=== PATIENT | female | born 1950 | race Caucasian/White ===

== ENCOUNTER 2020-10-05 09:32 | Emergency (ER) | payer OTHER, BC ==
[2020-10-05] MEDS ORDERED: IBUPROFEN 400 MG TAB ONE (10:08)
--- NOTE | 2020-10-05 10:17 | RAD REPORT ---
EXAM DESCRIPTION: CT - Head Brain Wo Cont - 10/05/2020 10:02 am CLINICAL HISTORY: Numbness/Lazo's palsy COMPARISON: None TECHNIQUE: Computed axial tomography of the head was obtained. IV contrast was not requested. All CT scans are performed using dose optimization technique as appropriate and may include automated exposure control or mA/KV adjustment according to patient size. FINDINGS: An intracranial bleed is not seen . The ventricles are normal in caliber. No extra-axial fluid collection is noted. Fluid within the sinuses/ mastoids is not seen. IMPRESSION: No acute intracranial abnormality is seen. If patient's symptoms persist MRI of the bra in would be recommended.
--- NOTE | 2020-10-05 10:48 | ER ---
Nurse's Notes [facility] Name: Chloe Serrano Age: 70 yrs Sex: Female : 1950 Arrival Date: 10/05/2020 Time: 09:34 Bed 14 Private MD: Diagnosis: Lazo's palsy Presentation: 10/05 09:39 Chief complaint: Patient states: left facial numbness, droop, unable to close her left sv eye since yesterday around 1600. Reports left ear pain x 1-2 days ago and took some Hydrocodone last night for it. Coronavirus screen: Client denies travel out of the [place] in the last 14 days. At this time, the client does not indicate any symptoms associated with coronavirus-19. Ebola Screen: No symptoms or risks identified at this time. No acute neurological deficit is noted. Pre-hospital glucose is not applicable to this patient. Risk Assessment: Do you want to hurt yourself or someone else? Patient reports no desire to harm self or others. Onset of symptoms was October 04, 2020. 09:39 Method Of Arrival: Wheelchair sv 09:39 Acuity: SARAH 3 sv 09:39 Initial Sepsis Screen: Does the patient meet any 2 criteria? No. Patient's initial sv sepsis screen is negative. Does the patient have a suspected source of infection? No. Patient's initial sepsis screen is negative. Triage Assessment: 09:39 The onset of the patients symptoms was more than six hours ago. The onset of the sv patients symptoms was October 04, 2020 at 16:00. General: Appears in no apparent distress. comfortable, Behavior is calm, cooperative, appropriate for age. Pain: Complains of pain in left ear. Neuro: Level of Consciousness is awake, alert, obeys commands, Oriented to person, place, time, situation, Manager Video are equal bilaterally Moves all extremities. Full function Gait is steady, Speech is normal, Facial droop on left, Reports numbness in left religion, left zygomatic area and left cheek. Respiratory: Respiratory effort is even, unlabored. Stroke Activation: Symptom onset > 6 hours Physician: Stroke Attending; Name: ; Notified At: ; Arrived At: Physician: Chief Stroke Resident; Name: ; Notified At: ; Arrived At: Physician: Stroke Resident; Name: ; Notified At: ; Arrived At: Physician: ED Attending; Name: ; Notified At: ; Arrived At: Physician: ED Resident; Name: ; Notified At: ; Arrived At: Historical: - Allergies: 09:41 No Known Allergies; sv - PMHx: :41 None; sv - PSHx: 09:41 Cholecystectomy; sv - Immunization history:: Client reports having NOT received the Covid vaccine. Flu vaccine is not up to date. - Social history:: Smoking status: Patient denies any tobacco usage or history of. Screenin:53 Abuse screen: Denies threats or abuse. Nutritional screening: No deficits noted. bw Tuberculosis screening: No symptoms or risk factors identified. Fall Risk None identified. Assessment: 09:40 Reassessment: Informed Enrique GILLILAND of the pt's reason for visit and symptoms. sv 09:53 VAN Scoring: Arm Drift: Patients demonstrates NO arm weakness. Patient is VAN Negative. bw The patient has not been NPO before screening. The patient is currently on the following diet: regular The patient is alert, and able to follow commands. The patient does not exhibit slurred or garbled speech. The patient is not exhibiting difficulty speaking. The patient does not exhibit difficulty understanding words. The patient is able to swallow own secretions with no drooling or need for suction. Patient tolerated one teaspoon of water. No drooling, immediate coughing, gurgling, or clearing of the throat was noted. The patient tolerated 90mL of water. No drooling, immediate coughing, gurgling, or clearing of the throat was noted. The patient passed the bedside swallow screening. Oral medications may be given as ordered. Contact Physician for further diet orders. Provider notified of bedside swallow screening results: Enrique GILLILAND. 10:43 Reassessment: Patient appears in no apparent distress at this time. No changes from bw previously documented assessment. Patient and/or family updated on plan of care and expected duration. Pain level reassessed. Patient is alert, oriented x 3, equal unlabored respirations, skin warm/dry/pink. 10:51 T-PA (Activase) Screening: Indications: Contraindications: Other: not a candidate nor bw indicated. Vital Signs: 09:39 BP 146 / 74; Pulse 76; Resp 16; Temp 97.3; Pulse Ox 96% ; Weight 65.77 kg; Height 5 ft. sv 8 in. (172.72 cm); 10:43 BP 141 / 70; Pulse 74; Pulse Ox 98% on R/A; bw 09:39 Body Mass Index 22.05 (65.77 kg, 172.72 cm) sv NIH Stroke Scale Scores: 09:53 NIHSS Score: 1 bw ED Course: 09:34 Patient arrived in ED. rg4 09:38 Enrique Howe PA is PHCP. cp 09:38 Oc Cabrera MD is Attending Physician. cp 09:41 Triage completed. sv 09:41 Arm band placed on Patient placed in an exam room, on a stretcher. sv 09:48 Lavern Lamb, DEBO is Primary Nurse. bw 09:53 Patient has correct armband on for positive identification. Call light in reach. Side bw rails up X 1. fresco artist on. Pulse ox on. NIBP on. Warm blanket given. 09:53 No provider procedures requiring assistance completed. Patient did not have IV access bw during this emergency room visit. 10:01 CT Head Brain wo Cont In Process Unspecified. EDMS 10:46 Teri Corcoran MD is Referral Physician. cp 10:46 Bassam Wang MD is Referral Physician. cp Administered Medications: 09:53 Drug: Ibuprofen 800 mg Route: PO; bw 10:54 Follow up: Response: No adverse reaction bw Point of Care Testing: Blood Glucose: 10:50 Blood Glucose: 88 mg/dL; Test Strip: Lot #: [id number]; Expiration: 04/04/2021; bw Ranges: Outcome: 10:47 Discharge ordered by . cp 10:50 Discharged to home ambulatory. bw 10:50 Condition: stable 10:50 Discharge instructions given to patient. 10:57 Patient left the ED. NIH Stroke Scale - NIH Stroke Score Date: 10/05/2020 Time: 09:53 Total Score = 1 1a. Level of Consciousness (LOC) - 0(Alert) 1b. Level of Consciousness (LOC) (Year \T\ Age) - 0(Both) 1c. LOC Commands (Open \T\ Closes Eyes/Bear Keeper) - 0(Both) 2. Best Gaze (Lateral Gaze Paresis) - 0(Normal) 3. Visual Field Loss - 0(No visual loss) 4. Facial Palsy - 1(Minor Paralysis) 5a. Left Arm: Motor (10-second hold) - 0(No drift) 5b. Right Arm: Motor (10-second hold) - 0(No drift) 6a. Left Leg: Motor (5-second hold - always test supine) - 0(No drift) 6b. Right Leg: Motor (5-second hold - always test supine) - 0(No drift) 7. Limb Ataxia (finger/nose \T\ heel/rivera - test with eyes open) - 0(Absent) 8. Sensory Loss (pinprick arms/legs/face) - 0(Normal) 9. Best Language: Aphasia (description/naming/reading) - 0(No aphasia) 10. Dysarthria (speech clarity - read or repeat words) - 0(Normal) 11. Extinction and Inattention (visual/tactile/auditory/spatial/personal) - 0(No abnormality) Initials: bw Signatures: Dispatcher [employer] Coty Valdez RN RN sv Enrique Howe PA PA cp Garcia, Rubi rg4 Lavern Lamb RN RN bw Corrections: (The following items were deleted from the chart) 09:44 09:39 Temp 97.3F; 65.77 kg; Height 5 ft. 8 in.; BMI: 22.0; sv sv
--- NOTE | 2020-10-05 10:48 | EDPHYS ---
Physician Documentation [facility] Name: Chloe Serrano Age: 70 yrs Sex: Female : 1950 Arrival Date: 10/05/2020 Time: 09:34 Bed 14 Private MD: ED Physician Oc Cabrera HPI: 10/05 09:50 This 70 yrs old Female presents to ER via Wheelchair with complaints of cp Facial Droop, Numbness Of Face. 09:50 The patient presents to the emergency department with left side facial droop. Onset: cp The symptoms/episode began/occurred upon awakening this morning at around 0700. Patient's baseline: Neuro: alert and fully oriented, Motor: no deficits, Ambulation: walks without assistance, Speech: normal. 09:50 Patient reports starting 2 days ago she noticed pain and numbness to left side of face, cp decreased hearing of left ear and pain. Patient reports upon awakening this morning she noticed left side of face drooping, difficulty closing left eye completely. Historical: - Allergies: 09:41 No Known Allergies; sv - PMHx: 09:41 None; sv - PSHx: 09:41 Cholecystectomy; sv - Immunization history:: Client reports having NOT received the Covid vaccine. Flu vaccine is not up to date. - Social history:: Smoking status: Patient denies any tobacco usage or history of. ROS: 10:05 ENT: Positive for pain and decreased hearing left ear. cp 10:05 Eyes: Negative for injury, pain, redness, and discharge. cp 10:05 Constitutional: Negative for body aches, chills, fever, poor PO intake. 10:05 Cardiovascular: Negative for chest pain, palpitations. 10:05 Skin: Negative for cellulitis, rash. 10:05 Neuro: Positive for tingling, of the left side of face, Negative for altered mental status, gait disturbance, weakness. 10:05 All other systems are negative. Exam: 10:10 Constitutional: The patient appears in no acute distress, alert, awake, comfortable, cp non-diaphoretic, non-toxic, well developed, well nourished. 10:10 Head/face: Noted is left side facial droop with asymmetric smile. cp 10:10 Eyes: Periorbital structures: appear normal, Pupils: equal, round, and reactive to cp light and accomodation, Extraocular movements: intact throughout, Conjunctiva: normal, no exudate, no injection. 10:10 ENT: External ear(s): are unremarkable, Ear canal(s): are normal, clear, TM's: dullness, bilaterally, Nose: is normal, Mouth: Lips: moist, Oral mucosa: moist, Posterior pharynx: Airway: no evidence of obstruction, patent. 10:10 Chest/axilla: Inspection: normal, Palpation: is normal, no crepitus, no tenderness. 10:10 Cardiovascular: Rate: normal, Rhythm: regular. 10:10 Respiratory: the patient does not display signs of respiratory distress, Respirations: normal, no use of accessory muscles, no retractions, labored breathing, is not present, Breath sounds: are clear throughout, no decreased breath sounds. 10:10 Abdomen/GI: Inspection: abdomen appears normal, Palpation: abdomen is soft and non-tender, in all quadrants. 10:10 Neuro: Orientation: to person, place \T\ time. Mentation: is normal, Cerebellar function: is grossly normal, Motor: moves all fours, strength is normal, Sensation: light touch is decreased in the left side of face. Vital Signs: 09:39 BP 146 / 74; Pulse 76; Resp 16; Temp 97.3; Pulse Ox 96% ; Weight 65.77 kg; Height 5 ft. sv 8 in. (172.72 cm); 10:43 BP 141 / 70; Pulse 74; Pulse Ox 98% on R/A; bw 09:39 Body Mass Index 22.05 (65.77 kg, 172.72 cm) sv NIH Stroke Scale Scores: 09:53 NIHSS Score: 1 bw MDM: 09:39 Patient medically screened. cp 10:45 Data reviewed: vital signs, nurses notes, radiologic studies, CT scan, I have discussed cp the patient's presentation/case with the attending Emergency Department Physician; and as a result, I will discharge patient. 10:45 Counseling: I had a detailed discussion with the patient and/or guardian regarding: the cp historical points, exam findings, and any diagnostic results supporting the discharge/admit diagnosis, radiology results, the need for outpatient follow up, an opthalmologist, a neurologist, to return to the emergency department if symptoms worsen or persist or if there are any questions or concerns that arise at home. 10/05 09:47 Order name: CT Head Brain wo Cont; Complete Time: 10:18 cp 10/05 10:18 Interpretation: Report reviewed. cp Administered Medications: 09:53 Drug: Ibuprofen 800 mg Route: PO; bw 10:54 Follow up: Response: No adverse reaction bw Point of Care Testing: Blood Glucose: 10:50 Blood Glucose: 88 mg/dL; Test Strip: Lot #: [id number]; Expiration: 04/04/2021; bw Ranges: Critical Glucose Levels:Adult <50 mg/dl or >400 mg/dl <40 mg/dl or >180 mg/dl Disposition: 11:00 Chart complete. cp 14:38 Co-signature as Attending Physician, Oc Cabrera MD I agree with the assessment and kdr plan of care. Disposition: 10/05/20 10:47 Discharged to Home. Impression: Lazo's palsy. - Condition is Stable. - Discharge Instructions: Lazo Palsy, Adult. - Prescriptions for Prednisone 20 mg Oral Tablet - take 3 tablets by ORAL route once daily for 7 days; 21 tablet. Valtrex 1 g Oral Tablet - take 1 tablet by ORAL route every 8 hours for 7 days; 21 tablet. - Medication Reconciliation Form, Thank You Letter, Antibiotic Education, Prescription Opioid Use form. - Follow up: Teri Corcoran MD; When: 2 - 3 days; Reason: Recheck today's complaints. Follow up: Bassam Wang MD; When: 2 - 3 days; Reason: Recheck today's complaints. - Problem is new. - Symptoms have improved. NIH Stroke Scale - NIH Stroke Score Date: 10/05/2020 Time: 09:53 Total Score = 1 1a. Level of Consciousness (LOC) - 0(Alert) 1b. Level of Consciousness (LOC) (Year \T\ Age) - 0(Both) 1c. LOC Commands (Open \T\ Closes Eyes/Payment Analyst) - 0(Both) 2. Best Gaze (Lateral Gaze Paresis) - 0(Normal) 3. Visual Field Loss - 0(No visual loss) 4. Facial Palsy - 1(Minor Paralysis) 5a. Left Arm: Motor (10-second hold) - 0(No drift) 5b. Right Arm: Motor (10-second hold) - 0(No drift) 6a. Left Leg: Motor (5-second hold - always test supine) - 0(No drift) 6b. Right Leg: Motor (5-second hold - always test supine) - 0(No drift) 7. Limb Ataxia (finger/nose \T\ heel/rivera - test with eyes open) - 0(Absent) 8. Sensory Loss (pinprick arms/legs/face) - 0(Normal) 9. Best Language: Aphasia (description/naming/reading) - 0(No aphasia) 10. Dysarthria (speech clarity - read or repeat words) - 0(Normal) 11. Extinction and Inattention (visual/tactile/auditory/spatial/personal) - 0(No abnormality) Initials: bw Signatures: Dispatcher [employer] EDCoty Moreira RN RN sv Oc Cabrera MD MD kdr Enrique Howe PA PA cp Lavern Lamb RN RN bw Corrections: (The following items were deleted from the chart) 10:57 10:47 10/05/2020 10:47 Discharged to Home. Impression: Laoz's palsy. Condition bw is Stable. Forms are Medication Reconciliation Form, Thank You Letter, Antibiotic Education, Prescription Opioid Use. Follow up: Teri Corcoran; When: 2 - 3 days; Reason: Recheck today's complaints. Follow up: Bassam Wang; When: 2 - 3 days; Reason: Recheck today's complaints. Problem is new. Symptoms have improved. cp
[2020-10-05 20:43] VITALS: TEMP 97.3
[2020-10-05 20:44] VITALS: BP 141/70; O2SAT 98
== END 2020-10-05 10:57 | disposition home or self-care (01) ==
LOC: ER 09:32
DX: G51.0 Bell's palsy (principal)
CPT/HCPCS: 70450; 99284